=== PATIENT | male | born 1970 | race African-American/Black ===

== ENCOUNTER 2019-10-13 20:01 | Emergency (ER) | payer BC ==
[~2019-10-13] VITALS: Ht 177.8 cm; Wt 81.7 kg
[2019-10-13 20:37] VITALS: BP 147/86
[2019-10-13 23:33] LABS: ABSOLUTE NEUTROPHILS 1.4 thou/uL (1.4-8.2); BASOPHILS 1.2 % (0.0-2.0); EOSINOPHILS 5.6 % (0.0-3.0); HEMATOCRIT 39.2 % (42.0-52.0); HEMOGLOBIN 12.6 gm/dL (14.0-18.0); LYMPHOCYTES 48.4 % (24.0-44.0); MCHC 32.2 g/dL (28.0-37.0); MONOCYTES 11.4 % (1.0-8.0); PLATELET COUNT 230 thou/uL (150-400); POLYS 33.4 % (36.0-66.0); RBC 4.66 mil/uL (4.50-6.00); RDW 14.4 % (10.5-14.5); WBC 4.3 thou/uL (4.0-11.0)
[2019-10-13 23:45] LABS: CREATININE 1.1 mg/dL (0.7-1.3); POTASSIUM 3.5 mmol/L (3.5-5.1)
[2019-10-14] MEDS ORDERED: NAPROSYN500 MG PO (00:16)
== END 2019-10-14 01:01 | disposition still patient (30) ==
LOC: ER 20:01
PROVIDERS: Nurse Practitioner
DX: S33.5XXA Sprain of ligaments of lumbar spine, initial encounter (principal); V89.0XXA Person injured in unspecified motor-vehicle accident, nontraffic, initial encounter; Y93.89 Activity, other specified; Y92.89 Other specified places as the place of occurrence of the external cause; Y99.8 Other external cause status